=== PATIENT | male | born 1950 | race Caucasian/White ===

== ENCOUNTER 2016-10-15 15:43 | Observation (INO) ==
--- NOTE | 2016-10-15 15:50 | Emergency Department Note ---
Disposition Clinical Impression: Lower extremity edema, Abnormal EKG, Hypertension, CHF (congestive heart failure) Disposition: Admitted As Inpatient Referrals: NO,PCP [Non-Partnered Physician] - Forms: ED Satisfaction Letter General Adult HPI - General Chief complaint: ED Extremity Problem,Nontraumatic Stated complaint: Bilateral Edema Time Seen by Provider: 10/15/16 15:48 Source: patient Limitations: no limitations - History of Present Illness HPI Narrative: 66-year-old male reports emergency department complaining of lower extremity swelling. It has been present for the last 10 days. The patient has no previous history of lower extremity edema. He denies any history of kidney failure or liver failure or previous CHF. He has no history of thyroid problems previous DVT PE or cancer. The patient does not take blood thinners. He has not any chest pain shortness of breath or abdominal pain no coughing up blood or passing out. There is no history of difficulty moving the arms or legs independently. There is no history of coldness blueness numbness or weakness of the extremities. No back pain or urinary problems no fevers or any other complaint or concern. No new medications or rashes. The patient's isolated complaint is lower extremity swelling bilaterally. Onset (ago): day(s) Pain Scale: 2 - Related Data Home Medications Medication Instructions Recorded Confirmed Buprenorphine HCl/Naloxone HCl 1 each SL BID 07/15/15 05/23/16 [Suboxone 8 mg-2 mg Sl Film] Lisinopril [Zestril] 5 mg PO DAILY 07/15/15 05/23/16 Ondansetron HCl [Zofran] 1 tab PO PRN PRN 07/15/15 05/23/16 Previous Rx's Medication Instructions Recorded Diltiazem HCl [Cardizem LA] 120 mg PO DAILY PRN #30 tab.er.24h 05/23/16 Omeprazole [PriLOSEC] 20 mg PO DAILY #30 capsule. 05/23/16 Allergies Allergy/AdvReac Type Severity Reaction Status Date / Time aspirin AdvReac Severe Abdominal Verified 05/23/16 13:05 pain and ulcers NSAIDS (Non-Steroidal AdvReac Severe Abdominal Verified 05/23/16 13:05 Anti-Inflamma pain and ulcers All systems ED: reviewed and negative except as stated. Past Medical History - Past Medical History Medical history: Reports: atrial fibrillation, hypertension, valvular heart disease Surgical history: Reports: appendectomy, other (bilroth 1 anastomosis in 2010) Psychiatric history: Reports: no psych history - Social History Smoking Status: Never smoker Smokeless Tobacco Status: No Alcohol use: Reports: none Drug use: Reports: none Physical Exam - General Limitations: no limitations General appearance: alert, in no apparent distress - Head Head exam: atraumatic, normocephalic, normal inspection - Eye Eye exam: Present: normal appearance, PERRL, EOMI - ENT ENT exam: normal exam, normal oropharynx, mucous membranes moist - Neck Neck exam: Present: normal inspection, full ROM, trachea midline - Chest Chest inspection: Present: normal inspection, symmetric chest wall rise. Absent : tenderness - Respiratory Respiratory exam: Present: normal lung sounds bilaterally. Absent: respiratory distress - Cardiovascular Cardiovascular exam: Present: regular rate, normal rhythm, normal heart sounds - Abdominal Exam Abdominal exam: Present: soft, Non-Tender. Absent: tenderness, distention, guarding, rebound, rigidity - Extremities Exam Extremities exam: Present: normal inspection, full ROM, normal capillary refill , pedal edema. Absent: tenderness, joint swelling, calf tenderness - Expanded Lower Extremity Exam Hip/Pelvis exam: Present: full ROM. Absent: tenderness Upper leg exam: Present: full ROM. Absent: tenderness Knee exam: Present: full ROM. Absent: tenderness Lower leg exam: Present: full ROM, tenderness, swelling. Absent: normal inspection Ankle exam: Present: full ROM, swelling. Absent: normal inspection Foot/toe exam: Present: full ROM, swelling Neurovascular/Tendon exam: Absent: pulse deficit, motor deficit, sensory deficit , tendon deficit - Back Exam Back exam: Present: normal inspection, full ROM. Absent: tenderness, CVA tenderness (R), CVA tenderness (L), vertebral tenderness - Neurological Exam Neurological exam: Present: alert, oriented X3, CN II-XII intact. Absent: motor sensory deficit - Psychiatric Psychiatric exam: Present: normal affect, normal mood - Skin Skin exam: Present: warm, dry, intact, normal color. Absent: rash, cyanosis, diaphoresis, erythema, pallor, mottled Course Vital Signs Temperature 98.4 F 10/15/16 15:44 Pulse Rate 56 10/15/16 15:44 Respiratory Rate 14 10/15/16 15:44 Blood Pressure 180/81 10/15/16 15:44 O2 Sat by Pulse Oximetry 100 10/15/16 15:44 Temperature 98.4 F 10/15/16 15:44 Pulse Rate 63 10/15/16 19:52 Respiratory Rate 16 10/15/16 19:52 Blood Pressure 169/108 10/15/16 19:52 O2 Sat by Pulse Oximetry 100 10/15/16 19:52 Oxygen Delivery Oxygen Delivery Room Air Medical Decision Making - MDM Narrative Medical decision making narrative: The patient does have changes suggestive of CHF based on his peripheral edema, and apparent venous congestion noted by CT and ultrasound. He has a highly abnormal EKG and has never had peripheral edema before. Based on his apparent new onset CHF, age, and markedly peripheral edema, I thought it would be appropriate to admit the patient for further evaluation. The patient is currently stable. He has no personal history of previous CAD or CHF but does have a history of atrial fibrillation remotely. The patient has no history of PE DVT or malignancy renal failure and liver failure or cancer. I consulted the hospitalist for admission. - Lab Data Lab results reviewed: Yes I reviewed the patient's lab results. Result diagrams: 10/15/16 16:02 10/15/16 16:02 Lab Results 10/15/16 10/15/16 10/15/16 Range/Units 16:02 16:02 16:02 WBC 4.5 (4.3-11.1) K/mcL RBC 4.16 L (4.19-5.50) M/mcL Hgb 12.7 L (12.9-16.9) g/dL Hct 39.4 (37.5-50.1) % MCV 94.7 (83.0-100.0) fL MCH 30.5 (28.0-33.3) pg MCHC 32.2 (31.6-35.5) g/dL RDW 12.6 (11.5-14.5) % Plt Count 167 (140-400) K/mcL MPV 10.6 (9.4-12.4) fL Immature Gran % 0.2 (0-4) % Seg Neutrophils % 69.3 % Lymphocytes % 15.9 % Monocytes % 11.5 % Eosinophils % 2.0 % Basophils % 1.1 % Neutrophils # 3.2 (1.6-8.9) K/mcL Lymphocytes # 0.7 (0.6-4.6) K/mcL Monocytes # 0.5 (0.0-1.3) K/mcL Eosinophils # 0.1 (0.0-0.6) K/mcL Basophils # 0.1 (0.0-0.2) K/mcL Immature Plt Fraction 8.1 H (1.1-6.1) % D-Dimer (0-500) ng/mLFEU Sodium 143 (136-145) mEq/L Potassium 3.9 (3.5-4.5) mEq/L Chloride 107 (98-109) mEq/L Carbon Dioxide 30 H (19-29) mEq/L BUN 14 (8-26) mg/dL Creatinine 0.96 (0.72-1.25) mg/dL Est GFR ( Amer) > 60 (> 60) Est GFR (Non-Af Amer) > 60 (> 60) BUN/Creatinine Ratio 15 (6-26) Glucose 83 (70-99) mg/dL Calculated Osmolality 296 (280-300) Calcium 10.2 (8.6-10.8) mg/dL Total Bilirubin 0.5 (0.2-1.2) mg/dL Direct Bilirubin 0.2 (0.0-0.5) mg/dL Indirect Bilirubin 0.3 (0.0-1.2) mg/dL AST 21 (5-34) Units/L ALT 11 (0-55) Units/L Alkaline Phosphatase 93 (38-126) Units/L Troponin I 0.01 (0-0.03) ng/mL C-Reactive Protein 0 (Less than 5) mg/L B-Natriuretic Peptide (0-100) pg/mL Serum Total Protein 7.0 (6.0-8.3) g/dL Albumin 3.9 (3.5-5.0) g/dL Globulin 3.1 (2.4-3.5) g/dL Albumin/Globulin Ratio 1.3 (1.1-2.2) Lipase 14 (8-78) Units/L TSH 1.490 (0.350-4.840) mcIU/mL 10/15/16 10/15/16 Range/Units 16:02 16:05 WBC (4.3-11.1) K/mcL RBC (4.19-5.50) M/mcL Hgb (12.9-16.9) g/dL Hct (37.5-50.1) % MCV (83.0-100.0) fL MCH (28.0-33.3) pg MCHC (31.6-35.5) g/dL RDW (11.5-14.5) % Plt Count (140-400) K/mcL MPV (9.4-12.4) fL Immature Gran % (0-4) % Seg Neutrophils % % Lymphocytes % % Monocytes % % Eosinophils % % Basophils % % Neutrophils # (1.6-8.9) K/mcL Lymphocytes # (0.6-4.6) K/mcL Monocytes # (0.0-1.3) K/mcL Eosinophils # (0.0-0.6) K/mcL Basophils # (0.0-0.2) K/mcL Immature Plt Fraction (1.1-6.1) % D-Dimer 593 H (0-500) ng/mLFEU Sodium (136-145) mEq/L Potassium (3.5-4.5) mEq/L Chloride (98-109) mEq/L Carbon Dioxide (19-29) mEq/L BUN (8-26) mg/dL Creatinine (0.72-1.25) mg/dL Est GFR ( Amer) (> 60) Est GFR (Non-Af Amer) (> 60) BUN/Creatinine Ratio (6-26) Glucose (70-99) mg/dL Calculated Osmolality (280-300) Calcium (8.6-10.8) mg/dL Total Bilirubin (0.2-1.2) mg/dL Direct Bilirubin (0.0-0.5) mg/dL Indirect Bilirubin (0.0-1.2) mg/dL AST (5-34) Units/L ALT (0-55) Units/L Alkaline Phosphatase (38-126) Units/L Troponin I (0-0.03) ng/mL C-Reactive Protein (Less than 5) mg/L B-Natriuretic Peptide 306 H (0-100) pg/mL Serum Total Protein (6.0-8.3) g/dL Albumin (3.5-5.0) g/dL Globulin (2.4-3.5) g/dL Albumin/Globulin Ratio (1.1-2.2) Lipase (8-78) Units/L TSH (0.350-4.840) mcIU/mL - Radiology Data Radiology results reviewed: Yes I reviewed the patient's radiology results.
[2016-10-15 16:10] LABS: Basophils # 0.1 K/mcL (0.0-0.2); Basophils % 1.1 %; Eosinophils # 0.1 K/mcL (0.0-0.6); Hematocrit 39.4 % (37.5-50.1); Hemoglobin 12.7 g/dL (12.9-16.9); Immature Granulocytes % 0.2 % (0-4); Immature Platelets 8.1 % (1.1-6.1); Lymphocytes # 0.7 K/mcL (0.6-4.6); Lymphocytes % 15.9 %; Mean Corpuscular HGB Conc 32.2 g/dL (31.6-35.5); Mean Corpuscular Hemoglobin 30.5 pg (28.0-33.3); Mean Corpuscular Volume 94.7 fL (83.0-100.0); Mean Platelet Volume 10.6 fL (9.4-12.4); Monocytes # 0.5 K/mcL (0.0-1.3); Monocytes % 11.5 %; Neutrophils # 3.2 K/mcL (1.6-8.9); Platelet Count 167 K/mcL (140-400); Red Blood Count 4.16 M/mcL (4.19-5.50); Red Cell Distribution Width 12.6 % (11.5-14.5); Segmented Neutrophils % 69.3 %
[2016-10-15 16:24] LABS: Alanine Aminotransferase 11 Units/L (0-55); Albumin 3.9 g/dL (3.5-5.0); Albumin/Globulin Ratio 1.3 (1.1-2.2); Alkaline Phosphatase 93 Units/L (38-126); Aspartate Amino Transferase 21 Units/L (5-34); BUN/Creatinine Ratio 15 (6-26); Bilirubin,Direct 0.2 mg/dL (0.0-0.5); Bilirubin,Indirect 0.3 mg/dL (0.0-1.2); Bilirubin,Total 0.5 mg/dL (0.2-1.2); Blood Urea Nitrogen 14 mg/dL (8-26); Calcium 10.2 mg/dL (8.6-10.8); Carbon Dioxide 30 mEq/L (19-29); Chloride 107 mEq/L (98-109); Globulin 3.1 g/dL (2.4-3.5); Glucose 83 mg/dL (70-99); Osmolality,Calculated 296 (280-300); Potassium 3.9 mEq/L (3.5-4.5); Sodium 143 mEq/L (136-145); eGFR For African Americans > 60 (> 60); eGFR For Non-African Americans > 60 (> 60)
[2016-10-15 17:27] LABS: C-Reactive Protein 0 mg/L (Less than 5)
[2016-10-15 19:29] LABS: Lipase 14 Units/L (8-78)
[2016-10-15] MEDS ORDERED: Furosemide 40 MG in 0.9 % Sodium Chloride 50 ML IVPB ONE (21:19)
[2016-10-15] MEDS ORDERED: Furosemide 40 MG/4 ML VIAL ONE (21:30)
[2016-10-15] MEDS ORDERED: Naloxone 0.4 MG/ML INJ IVP PRN (22:11)
[2016-10-15] MEDS ORDERED: Ondansetron ODT 4 MG TAB.RAPDIS PO PRN (22:14)
[2016-10-15] MEDS ORDERED: Diltiazem CD (24hr) 120 MG CAPSULE PO PRN (22:14)
--- NOTE | 2016-10-15 22:42 | Internal Med History&Physical ---
Date of Encounter: 10/15/16 Time of Encounter: 22:00 Assessment and Plan (1) Lower extremity edema Current visit: Yes Status: Acute -Concern for CHF -Patient received one dose of Lasix 40mg IV in the ER -Will continue Lasix 40mg IV q12h -follow up 2D echo -monitor daily weights -monitor I/Os -consider cardiology eval if clinically worsens Qualifiers: Laterality: bilateral Qualified Code(s): R60.0 - Localized edema (2) Hypertension Current visit: Yes Status: Chronic -Likely secondary to noncompliane -Will resume home medications -Added Hydralazine 10mg IV q6h PRN -continue to closely monitor BP Qualifiers: Hypertension type: essential hypertension Qualified Code(s): I10 - Essential (primary) hypertension (3) Afib Current visit: No Status: Chronic -Rate controlled with Diltiazem -continue home medications -Not on anticoagulation due to history of GI bleed -not able to tolerate any NSAID and Aspirin due to GI bleed Qualifiers: Atrial fibrillation type: paroxysmal Qualified Code(s): I48.0 - Paroxysmal atrial fibrillation (4) DVT prophylaxis Current visit: Yes Status: Acute Enoxaparin SQ Internal Medicine - H&P: HPI Chief complaint: bilateral lower extremity edema Admitted From: Home Plans for Post Hospital Care: Home History of present illness: Mr. Ward is a 66 year old male with past medical history of hypertension, atrial fibrillation, peptic ulcer disease who presents to the ER for worsening lower extremity edema 10 days. Patient states he has been noticing bilateral lower extremity swelling for the last few days and earlier today he went to urgent care to get it evaluated and was forwarded to the ER for further management. He states he has been in usual state of health, is currently tapering off the Suboxone, and overall is feeling better, apart from the worsening lower extremity swelling. He denies any headache, chest pain, palpitations, shortness of breath, orthopnea, abdominal pain, nausea, vomiting, fever, or chills. At this time patient is resting comfortably in bed and appears to be in no discomfort. He reports of being noncompliant with his antihypertensives and states when his blood pressure is under control he stops taking them until he becomes hypertensive again. Social Hx: Former smoker (quit in 1989), Hx of opioid abuse-currently on Suboxone, hx of alcohol abuse-denies any use at this time FMH: Mother- at age 60 from complications of CHF, as per patient, his mother was diagnosed with CHF at 60 Past Med Surg Social Fam HX - Past Medical History Medical history: atrial fibrillation, hypertension, valvular heart disease Psychiatric history: no psych history - Past Surgical History Surgical History: appendectomy, other (bilroth 1 anastomosis in 2009) - Social History Smoking Status: Former smoker Smokeless Tobacco Status: No Alcohol use: none Drug use: none - Family History Mother Living Status: Hx Family Cardiac Disorders: Yes Internal Medicine - H&P: Meds Buprenorphine HCl/Naloxone HCl [Suboxone 8 mg-2 mg Sl Film] 1 each SL BID [History] Lisinopril [Zestril] 5 mg PO DAILY 07/15/15 [History] Ondansetron HCl [Zofran] 1 tab PO PRN PRN 07/15/15 [History] Diltiazem HCl [Cardizem LA] 120 mg PO DAILY PRN #30 tab.er.24h 05/23/16 [Rx] Omeprazole [PriLOSEC] 20 mg PO DAILY #30 capsule.dr 05/23/16 [Rx] Allergies aspirin Adverse Reaction (Severe, Verified 05/23/16 13:05) Abdominal pain and ulcers NSAIDS (Non-Steroidal Anti-Inflamma Adverse Reaction (Severe, Verified 05/23/16 13:05) Abdominal pain and ulcers All Systems PM: A 10-system review of systems was performed and is negative for pertinent findings except as documented above in the HPI. - Constitutional Constitutional: as per HPI - Constitutional Vitals: Temp Pulse Resp BP Pulse Ox 97.9 F 62 16 192/95 99 10/15/16 22:36 10/15/16 22:36 10/15/16 22:36 10/15/16 22:36 10/15/16 22:36 General appearance: Present: cooperative, A&O X 3, pleasant, no acute distress, answers questions appropriately - Head Head exam: Present: atraumatic, normocephalic - Eye Eye exam: Present: PERRL, conjuntiva pink, sclera anicteric - Respiratory Respiratory exam: Absent: respiratory distress, wheezes (mild bibasilar crackles ) - Cardiovascular Cardiovascular exam: Present: RRR, +S1, +S2. Absent: JVD - GI/Abdominal GI/Abdominal exam: Present: normal bowel sounds, soft. Absent: distended, tenderness - Extremities Exam Extremities exam: Present: pedal edema (2+ pitting edema extending to mid serna bilaterally ), warm, radial pulses palpable and symetrical. Absent: calf tenderness - Neurological Exam Neurological exam: Present: alert, oriented X3, no focal deficits - Psychiatric Psychiatric exam: Present: normal affect, normal mood Internal Med - H&P Results - Labs CBC & Chem 7: 10/15/16 16:02 10/15/16 16:02
[2016-10-16] MEDS: Acetaminophen 325 MG TABLET PO PRN ×2 (02:42→10:14)
[2016-10-16 03:21] LABS: Basophils # 0.1 K/mcL (0.0-0.2); Basophils % 0.9 %; Eosinophils # 0.1 K/mcL (0.0-0.6); Eosinophils % 2.6 %; Hematocrit 39.5 % (37.5-50.1); Hemoglobin 13.1 g/dL (12.9-16.9); Immature Granulocytes % 0.6 % (0-4); Lymphocytes # 0.7 K/mcL (0.6-4.6); Lymphocytes % 13.4 %; Mean Corpuscular HGB Conc 33.2 g/dL (31.6-35.5); Mean Corpuscular Hemoglobin 30.6 pg (28.0-33.3); Mean Corpuscular Volume 92.3 fL (83.0-100.0); Mean Platelet Volume 10.9 fL (9.4-12.4); Monocytes # 0.6 K/mcL (0.0-1.3); Monocytes % 11.6 %; Neutrophils # 3.9 K/mcL (1.6-8.9); Platelet Count 151 K/mcL (140-400); Red Blood Count 4.28 M/mcL (4.19-5.50); Red Cell Distribution Width 12.7 % (11.5-14.5); Segmented Neutrophils % 70.9 %
[2016-10-16 03:34] LABS: BUN/Creatinine Ratio 13 (6-26); Blood Urea Nitrogen 14 mg/dL (8-26); Calcium 9.9 mg/dL (8.6-10.8); Carbon Dioxide 27 mEq/L (19-29); Chloride 105 mEq/L (98-109); Glucose 96 mg/dL (70-99); Osmolality,Calculated 292 (280-300); Phosphorous 3.8 mg/dL (2.3-4.7); Potassium 3.5 mEq/L (3.5-4.5); Sodium 141 mEq/L (136-145); eGFR For African Americans > 60 (> 60); eGFR For Non-African Americans > 60 (> 60)
[2016-10-16] MEDS: *HR* Enoxaparin 40 MG/0.4 ML SYRINGE SQ SCH (06:10)
[2016-10-16] MEDS: Furosemide 40 MG/4 ML VIAL IVP SCH (10:12)
[2016-10-16] MEDS: (Suboxone 8 Mg-2 Mg) SL SCH ×2 (10:27→21:36)
--- NOTE | 2016-10-16 11:11 | Venous Imaging Report ---
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 Recommendations: Preliminary given to Albino in ED. Test completed on 10/15/2016 at 7:42:00 pm. Findings Venous Duplex Results: Right: Venous imaging of the lower extremity reveals full patency and normal vessel compressibility of the right distal iliac, right common femoral, right superficial femoral, right popliteal, right posterior tibial, right peroneal, right great saphenous and right lesser saphenous. Doppler signals in the evaluated veins were normal. Left: Venous imaging of the lower extremity reveals full patency and normal vessel compressibility of the left distal iliac, left common femoral, left superficial femoral, left popliteal, left posterior tibial, left peroneal, left great saphenous and left lesser saphenous. Doppler signals in the evaluated veins were normal. Prior Study: No prior study available for comparison. Lower Extremity Venous Duplex Side Vein Compress Spontaneous Flow Augment Diameter (cm) Depth (cm) Right Distal Iliac Normal Yes Phasic Yes Right Common Femoral Normal Yes Phasic Yes Right Superficial Femoral Normal Yes Phasic Yes Right Popliteal Normal Yes Phasic Yes Right Posterior Tibial Normal Yes Phasic Yes Right Peroneal Normal Yes Phasic Yes Right Great Saphenous Normal Yes Phasic Yes Right Lesser Saphenous Normal Yes Phasic Yes Left Distal Iliac Normal Yes Phasic Yes Left Common Femoral Normal Yes Phasic Yes Left Superficial Femoral Normal Yes Phasic Yes Left Popliteal Normal Yes Phasic Yes Left Posterior Tibial Normal Yes Phasic Yes Left Peroneal Normal Yes Phasic Yes Left Great Saphenous Normal Yes Phasic Yes Left Lesser Saphenous Normal Yes Phasic Yes Updated by Da Nagy MD on 10/16/2016 11:05:35 AM electronically signed on 10/16/2016 11:05:54 AM with status of Final
--- NOTE | 2016-10-16 15:50 | ECHO - Doppler Report ---
Echocardiogram Name: Kasi Ward Date of Study: 10/16/2016 Date: 1950 Ht: 71.0 in Medical Record#: [id number] Age: 66 Wt: 144.0 lb Gender: Male BSA: 1.83 Order #: [id number] Location: [facility] Room #: [facility] Reading Physician: Christi Hernandez DO Meter Reader Inspector: SAIMA StoddardT, [facility] Ordering Physician: Sherry Jimenez MD Primary Physician: Jasmyn Anthony MD Indications: Congestive heart failure Impressions: LVEF 65%. Normal left ventricular size and systolic function. There is evidence of moderate diastolic dysfunction of the left ventricle. Normal right ventricular size and function. Moderate-severe eccentric aortic regurgitation. There is a mobile mitral valve chordae that oscillates between the LA and LV probably consistent with a ruptured chordae (image #45). Degree of MR appears mild and likely underestimated. There also appears to be probable prolapsing of a middle scallop (image #66). Moderate pulmonic regurgitation. Estimated RVSP was 23 mmHg. No pulmonary hypertension. Recommend MARY JANE for further evaluation of the mitral valve and aortic valves. Spoke with Dr. Lofton and communicated results. Patient is stable. Left Ventricular Wall Motion: Rest Echo Findings All wall segments showed normal motion. Findings: Study Quality * Technically adequate exam. ECG Findings * Normal sinus rhythm. Left Ventricle * Normal LV chamber size, wall thickness and function. * Moderate left ventricular diastolic dysfunction. * LVEF 65%. Right Atrium * Normal right atrial size. Aortic Valve * Trileaflet aortic valve. * No aortic stenosis. * Moderate-severe eccentric aortic regurgitation. * Mildly calcified aortic valve leaflets. Mitral Valve * No mitral stenosis. * Mildly thickened mitral valve leaflets. * Mild mitral regurgitation. * Probable prolapsing of a middle scallop with a chordae that appears ruptured. Tricuspid Valve * Trace tricuspid regurgitation. * Normal tricuspid valve structure. * Estimated RA pressure is 3 mmHg. * Estimated RVSP is 23 mmHg. * No pulmonary hypertension. Pulmonic Valve * Pulmonic valve is not well visualized. * No pulmonic stenosis. * Moderate pulmonic regurgitation. Pulmonary Artery * Normal visualized portions of the main pulmonary artery. Right Ventricle * Normal right ventricular structure and function. Left Atrium * Severely dilated left atrium. Interatrial Septum * No evidence of PFO by color Doppler. IVC * Normal IVC dimensions and inspiratory collapse. Pericardium * There is no pericardial effusion present. Aorta * Normally sized aortic root. History Hypertension Family History of CAD 2015 a Previous Echo was performed. Measurements: BP: 125/ 78 2D Normal Values IVSd: 1.10 cm 0.6 - 1.0 cm LVIDd: 5.20 cm 3.7 - 5.6 cm LVPWd: 1.10 cm 0.6 - 1.1 cm LVIDs: 4.10 cm 1.5 - 3.6 cm AO: 2.80 cm < 4.0 cm LA: 2.80 cm 2.0 - 4.0cm %FS: 25.50 cm >25 % LA volume: 45 Mitral Valve Peak E:.72 m/sec Peak A:.57 m/sec E/A Ratio:1.2 Aortic Valve AI pressure Half-time: 677.00 msec Tricuspid Valve TV Regurg Peak Grad: 20.00mmHg TV Regurg Peak Paco: 2.25m/sec Updated by Christi Hernandez on 10/16/2016 1:32:08 PM electronically signed on 10/16/2016 3:44:19 PM with status of Final Wall Motion Bray: 1=Normal, 2=Hypokinesis, 3=Akinesis, 4=Dyskinesis, 5=Aneurysmal, 6=Hyperkinetic, X=Not Visualized (Blank)=Missing
--- NOTE | 2016-10-16 16:36 | Internal Med Progress Note ---
Date of Encounter: 10/16/16 Time of Encounter: 16:30 - Assessment and plan (1) Lower extremity edema Current Visit: Yes Status: Acute Assessment and plan: Improving. Continue Lasix. Qualifiers: Laterality: bilateral Qualified Code(s): R60.0 - Localized edema (2) Mitral valve prolapse Current Visit: Yes Status: Suspected Assessment and plan: 2-D echocardiogram shows possible mitral valve prolapse With concern for ruptured chorda tendinae. Discussed with cardiology. Plan for MARY JANE tomorrow. Patient is clinically stable at this time. (3) Hypertension Current Visit: Yes Status: Chronic Assessment and plan: Well-controlled. Qualifiers: Hypertension type: essential hypertension Qualified Code(s): I10 - Essential (primary) hypertension (4) Afib Current Visit: No Status: Chronic Assessment and plan: Rate controlled. Continue Cardizem. Qualifiers: Atrial fibrillation type: paroxysmal Qualified Code(s): I48.0 - Paroxysmal atrial fibrillation (5) DVT prophylaxis Current Visit: Yes Status: Acute Assessment and plan: On Lovenox - Subjective Interval history: Patient is feeling better today. Denies any shortness of breath. No chest pain. No nausea or vomiting. Having good urine output. - Constitutional Vitals: Temp Pulse Resp BP Pulse Ox 98.0 F 69 17 144/75 99 10/16/16 15:06 10/16/16 15:06 10/16/16 15:06 10/16/16 15:06 10/16/16 15:06 General appearance: Present: cooperative, A&O X 3, pleasant, no acute distress, answers questions appropriately - Respiratory Respiratory exam: Present: CTAB. Absent: accessory muscle use, rales, rhonchi, wheezes - GI/Abdominal GI/Abdominal exam: Present: normal bowel sounds, soft, no peritoneal signs. Absent: distended, tenderness - Extremities Exam Extremities exam: Present: warm, radial pulses palpable and symetrical. Absent : calf tenderness, cyanotic, pedal edema - Neurological Exam Neurological exam: Present: CN II-XII intact, oriented X3, no focal deficits. Absent: facial droop, speech deficit - Skin Skin exam: Present: dry, intact Internal Medicine: Result - Labs CBC & Chem 7: 10/16/16 03:04 10/16/16 03:04 Labs: Short CBC 10/16/16 Range/Units 03:04 WBC 5.4 (4.3-11.1) K/mcL Hgb 13.1 (12.9-16.9) g/dL Hct 39.5 (37.5-50.1) % Plt Count 151 (140-400) K/mcL Neutrophils # 3.9 (1.6-8.9) K/mcL BMP 10/16/16 03:04 Sodium 141 Potassium 3.5 Chloride 105 Carbon Dioxide 27 BUN 14 Creatinine 1.04 Glucose 96 Calcium 9.9 - ABG Interpretation ABG results: PT/INR, D-dimer D-Dimer 593 ng/mLFEU (0-500) H 10/15/16 16:05 Consult Discharge Plan - Plan Referrals: Jasmyn Anthony MD [Primary Care Provider] - - Attending Attestation This document has been at least partially created by [email or web address] recognition technology by Dr. Lofton. Errors in grammar, wording or other phrases may exist. If errors are found after the documentation is signed, they will be addressed individually in the addendum section of this document when appropriate. Medical Decision Making - MDM Narrative Medical decision making narrative: Moderate risk for complications - Lab Data Lab results reviewed: Yes I reviewed the patient's lab results. Result diagrams: 10/16/16 03:04 10/16/16 03:04 Lab Results 10/16/16 10/16/16 Range/Units 03:04 03:04 WBC 5.4 (4.3-11.1) K/mcL RBC 4.28 (4.19-5.50) M/mcL Hgb 13.1 (12.9-16.9) g/dL Hct 39.5 (37.5-50.1) % MCV 92.3 (83.0-100.0) fL MCH 30.6 (28.0-33.3) pg MCHC 33.2 (31.6-35.5) g/dL RDW 12.7 (11.5-14.5) % Plt Count 151 (140-400) K/mcL MPV 10.9 (9.4-12.4) fL Immature Gran % 0.6 (0-4) % Seg Neutrophils % 70.9 % Lymphocytes % 13.4 % Monocytes % 11.6 % Eosinophils % 2.6 % Basophils % 0.9 % Neutrophils # 3.9 (1.6-8.9) K/mcL Lymphocytes # 0.7 (0.6-4.6) K/mcL Monocytes # 0.6 (0.0-1.3) K/mcL Eosinophils # 0.1 (0.0-0.6) K/mcL Basophils # 0.1 (0.0-0.2) K/mcL Sodium 141 (136-145) mEq/L Potassium 3.5 (3.5-4.5) mEq/L Chloride 105 (98-109) mEq/L Carbon Dioxide 27 (19-29) mEq/L BUN 14 (8-26) mg/dL Creatinine 1.04 (0.72-1.25) mg/dL Est GFR ( Amer) > 60 (> 60) Est GFR (Non-Af Amer) > 60 (> 60) BUN/Creatinine Ratio 13 (6-26) Glucose 96 (70-99) mg/dL Calculated Osmolality 292 (280-300) Calcium 9.9 (8.6-10.8) mg/dL Phosphorus 3.8 (2.3-4.7) mg/dL Magnesium 2.0 (1.6-2.6) mg/dL - Radiology Data Radiology results reviewed: Yes I reviewed the patient's radiology results.
[2016-10-16] MEDS: Acetaminophen/Butalbital/CaffeineTABLET PO PRN (19:40)
[2016-10-17] MEDS: Acetaminophen/Butalbital/CaffeineTABLET PO PRN ×2 (01:40→12:02)
[2016-10-17] MEDS: *HR* Enoxaparin 40 MG/0.4 ML SYRINGE SQ SCH (06:14)
--- NOTE | 2016-10-17 08:44 | Cardiology Consult Note ---
Date of Encounter: 10/17/16 Time of Encounter: 08:20 Assessment and Plan (1) Valvular disease Current Visit: Yes Status: Acute Per Cardiology: TTE: preserved EF 65% with moderate to severe AR and also mobile MV chordae consistent with rupture. Recommend MARY JANE for further evaluation of mitral and aortic valves. Patient has been NPO after midnight and agrees to proceed. Further recommendations after testing. (2) Afib Current Visit: Yes Status: Chronic Hx of PAF. Rate controlled on oral cardizem. ECG upon presentation shows SR. No AC due to history of GI bleed. Qualifiers: Atrial fibrillation type: paroxysmal Qualified Code(s): I48.0 - Paroxysmal atrial fibrillation (3) CHF (congestive heart failure) Current Visit: Yes Status: Acute Mild acute on chronic diastolic CHF. EF preserved, 65%. Symptoms resolved with IV lasix, recommend transition to oral maintenance dose as discharge. Strict I&O's, daily weights, and low sodium diet. Qualifiers: Congestive heart failure type: diastolic Congestive heart failure chronicity: acute on chronic Qualified Code(s): I50.33 - Acute on chronic diastolic (congestive) heart failure Discussion w patient/family: The assessment and plan as outlined above was discussed with the patient and/or family members who expressed understanding and agreement. All questions were answered. Thank you for involving us in the care of your patient. Please call with any questions. The patient will be discussed and reviewed with Dr. Rudolph; changes to be made accordingly. History of Present Illness Consult date: 10/16/16 Requesting physician: Maira Lofton Consult reason: Abnormal echo Chief complaint: Edema History of present illness: Mr. Ward is a 66 year old male with PMH significant for HTN, PAF, GI bleed on AC, and tobacco use who presented to the ED with complaints of bilateral lower extremity edema. He states symptoms had been persistent for 9 days. Denies associated symptoms, change in diet, or medications. Denies PND, orthopnea, chest pain or discomfort, dyspnea, palpitations, or syncope. Upon exam, lower extremity edema has since resolved. Cardiology consulted today for abnormal TTE findings, possible ruptured MV chordae. MARY JANE recommended. Prior CV testing includes: Regadenoson nuclear stresss 05/23/16: negative for ischemia or infarct, gated EF =63%, LV is dilated, EZDJU=556 mL TTE 03/26/15: LVEF 60-65%, severely enlarged left atrial size, mildly enlarged right atrial size, moderate AR, mild MR/TR/MT, borderline PH (est RVSP= 35 mmHg), normal wall motion. [facility] 06/2010: minimal atherosclerotic CAD, EF 65%, moderate MR, moderate to severe AR Past Med Surg Social Fam HX - Past Medical History Medical history: atrial fibrillation, hypertension, valvular heart disease Psychiatric history: no psych history - Past Surgical History Surgical History: appendectomy, other (bilroth 1 anastomosis in 2009) - Social History Smoking Status: Former smoker Smokeless Tobacco Status: No Alcohol use: none Drug use: none - Family History Father Hx Family Medical Disorders: Yes (HTN) Mother Living Status: Hx Family Cardiac Disorders: Yes Medications and Allergies Buprenorphine HCl/Naloxone HCl [Suboxone 8 mg-2 mg Sl Film] 1 film SL BID [History] Lisinopril [Zestril] 5 mg PO DAILY 07/15/15 [History] Ondansetron HCl [Zofran] 4 mg PO Q6H PRN 07/15/15 [History] Diltiazem HCl [Cardizem LA] 120 mg PO DAILY PRN #30 tab.er.24h 05/23/16 [Rx] Aspirin [Lo-Dose Aspirin EC] 81 mg PO DAILY 10/16/16 [History] Folic Acid 1 mg PO DAILY 10/16/16 [History] Omeprazole [PriLOSEC] 40 mg PO DAILY 10/16/16 [History] Allergies aspirin Adverse Reaction (Severe, Verified 05/23/16 13:05) Abdominal pain and ulcers NSAIDS (Non-Steroidal Anti-Inflamma Adverse Reaction (Severe, Verified 05/23/16 13:05) Abdominal pain and ulcers All Systems Review: A 10-system review of systems was performed and is negative for pertinent findings except as documented above in the HPI. - Cardiovascular Cardiovascular: as per HPI Physical Examination Vital Signs, Last 4 Hours Temp Pulse Resp BP Pulse Ox 10/17/16 06:44 98.2 F 94 15 141/84 96 General: Conversant, No Apparent Distress HEENT: Atraumatic, Normocephaly Cardiac: Reg Rate and Rhythm, Normal S1 and S2, Other (2/6 murmur) Lungs: Normal Breath Sounds Neuro: Alert and responsive Abdomen: Soft Skin: No rashes noted on visualized skin Musculoskeletal: No Chest Wall Tenderness Extremities: No Edema, Normal Pulses Results 10/16/16 03:04 10/16/16 03:04 Active Medications Acetaminophen (Tylenol) 650 mg PO Q6HR PRN PRN Reason: FEVER/PAIN Stop: 04/17/17 02:26 Last Admin: 10/16/16 10:14 Dose: 650 mg Acetaminophen/Butalbital/Caffeine (Fioricet) 1 each PO Q6HR PRN; Protocol PRN Reason: Headache Stop: 04/17/17 19:09 Last Admin: 10/17/16 01:40 Dose: 1 each Diltiazem HCl (Cardizem Cd) 120 mg PO DAILY PRN PRN Reason: tachycardia Enoxaparin Sodium (Lovenox) 40 mg SQ 0600 [facility] PRN Reason: Protocol Stop: 04/17/17 06:01 Last Admin: 10/17/16 06:14 Dose: Not Given Furosemide (Lasix) 40 mg IVP DAILY [facility] Stop: 04/17/17 09:01 Last Admin: 10/17/16 08:49 Dose: Not Given Hydralazine HCl (Hydralazine) 10 mg IVP Q6HR PRN PRN Reason: Hypertension Stop: 04/16/17 22:38 Last Admin: 10/15/16 23:05 Dose: 10 mg Lisinopril (Zestril) 5 mg PO DAILY LEIDY PRN Reason: Protocol Stop: 04/17/17 09:01 Last Admin: 10/17/16 08:49 Dose: Not Given Naloxone HCl (Narcan) 0.4 mg IVP Q2MIN PRN PRN Reason: Opioid Reversal Stop: 04/16/17 22:12 Omeprazole (Prilosec) 20 mg PO DAILY@0630 LEIDY PRN Reason: Protocol Stop: 04/17/17 06:31 Last Admin: 10/17/16 06:12 Dose: Not Given Ondansetron HCl (Zofran Odt) 4 mg PO Q8H PRN PRN Reason: Nausea Stop: 04/16/17 22:15 Last Admin: 10/16/16 11:42 Dose: 4 mg Pharmacy Profile Note (Patient Taking Own Medication) 1 each SL BID LEIDY Stop: 04/17/17 09:01 Last Admin: 10/17/16 08:49 Dose: Not Given Intake & Output 10/14/16 10/15/16 10/16/16 10/17/16 23:59 23:59 23:59 23:59 Intake Total 1330 / 1330 0 / 0 Output Total 1200 / 1200 3750 / 3750 200 / 200 Balance -1200 / -1200 -2420 / -2420 -200 / -200 Weight 65.317 kg 55.6 kg - Imaging and Cardiology Chest Xray: report reviewed Echo: report reviewed Cardiac cath: report reviewed - EKG Interpretation EKG results cardiology: personally reviewed Consult Discharge Plan - Plan Referrals: Jasmyn Anthony MD [Primary Care Provider] -
[2016-10-17] MEDS: (Suboxone 8 Mg-2 Mg) SL SCH ×2 (08:49→12:02)
[2016-10-17] MEDS: Furosemide 40 MG/4 ML VIAL IVP SCH (08:49)
[2016-10-17] MEDS ORDERED: 0.9 % Sodium Chloride 500 ML IVC ONE (09:38)
[2016-10-17] MEDS ORDERED: Tetracaine/Benzocaine/Butamben 200MG/SPRAY (100SPY/BOT) MM ONE (09:39)
[2016-10-17] MEDS: *HR* Midazolam HCl 5 MG/5 ML VIAL IVP PRN ×2 (10:30→10:35)
[2016-10-17] MEDS: *HR* FentaNYL (PF) 100 MCG/2 ML VIAL IVP PRN ×2 (10:30→10:35)
[2016-10-17 11:49] VITALS: BP 117/65
--- NOTE | 2016-10-17 11:49 | ECHO - Doppler Report ---
Transesophageal Echocardiogram Name: Kasi Ward Date of Study: 10/17/2016 Date: 1950 Ht: 71.0in Medical Record#: [id number] Age: 66 Wt: 122.0lb Gender: Male BSA: 1.71 Order #: [id number] [facility] Room #: [facility] Reading Physician: Elliott Hlae DO, TAVIA, JUAN DAN Copy Center Operator: Diego Lucia Ordering Physician: Ayala Lilly CNP Primary Physician: Jasmyn Anthony MD Indications: Valvular disease Impressions: Technically sub-optimal study. Off axis images complicated evaluation. LVEF 60%. Normal LV size and function. The right ventricle was normal in size and systolic function. Severe aortic regurgitation, which was eccentric and directed towards the anterior MV leaflet. Aortic regurgitation appears secondary to malcoaptation between the non and left coronary cusps. There appears to be mild prolapse of the posterior MV leaflets. No ruptured chordae or masses noted. Mild mitral regurgitation. Findings discussed with inpatient cardiology team. Left Ventricular Wall Motion: Transesophageal Echo Findings All wall segments showed normal motion. Procedure Summary: After explaining the risks, benefits, and alternatives of the procedure to the patient in detail and answering all questions to satisfaction, an informed consent was obtained in writing. The patient was NPO for the six hours prior to the procedure. The patient denied dysphagia, odynophagia, and loose teeth. The patient was monitored with periodic automated blood pressures and continuous pulse oximetry and telemetry. Continuous oxygen was administered by [place]. The patient was placed in the full upright position and the posterior oropharynx was anesthetized as above and complete suppression of the gag reflex was obtained. The patient was then placed in the left lateral decubitus position, the neck was flexed, and a bite block was placed in the patient's mouth. IV sedation was administered. Once adequate sedation was achieved, a well-lubricated anteflexed multipoint intraesophageal echocardiographic probe was inserted into the midline posterior oropharynx. Gentle pressure was applied as the patient swallowed and the esophagus was intubated without difficulty. The scope was advanced to the mid esophagus without encountering resistance. Images were obtained from the mid and upper esophagus. Images from the gastric globe were obtained. The scope was then rotated approximately 180 degrees and withdrawn, visualizing the length of the aorta. The scope was then slowly withdrawn as the patient was continually suctioned. The patient tolerated the procedure well. Medication Given: Time Medication Dose Units Route 10:30 Versed 2 mg IV 10:30 Fentanyl 25 mcg IV 10:35 Versed 2 mg IV 10:35 Fentanyl 25 mcg IV Findings: Study Quality * Technically sub-optimal study. Off axis images complicated evaluation. ECG Findings * Normal sinus rhythm Left Ventricle * LVEF 60%. * Normal LV size and function. Right Ventricle * The right ventricle was normal in size and systolic function. Left Atrium * Moderately dilated left atrium. Right Atrium * Within normal limits. Aortic Valve * The aortic valve is trileaflet. * Severe aortic regurgitation, which was eccentric and directed towards the anterior MV leaflet. * Aortic regurgitation appears secondary to malcoaptation between the non and left coronary cusps. * No aortic stenosis. Mitral Valve * There appears to be mild prolapse of the posterior MV leaflets. No ruptured chordae or masses noted. * Mild mitral regurgitation. * No mitral stenosis. Tricuspid Valve * Normal structure. Pulmonic Valve * Normal structure and function. * No pulmonic regurgitation. Aorta * The aortic root is not dilated. Pericardium * No pericardial effusion. Pulmonary Artery * Normal pulmonary artery. Complications: None History: Hypertension Years 10 Packs 1 Family History of CAD Valvular Disease Previous Echo10/16/2016 Updated by Elliott Hale DO, FACIldefonso, SY, JUAN on 10/17/2016 11:42:54 AM electronically signed on 10/17/2016 11:44:28 AM with status of Final Wall Motion Bray: 1=Normal, 2=Hypokinesis, 3=Akinesis, 4=Dyskinesis, 5=Aneurysmal, 6=Hyperkinetic, X=Not Visualized (Blank)=Missing Wall MotionIndex MARY JANE Total of all scored calhoun 17 Index Divided by ---- = 1 Total number of calhoun scored 17
--- NOTE | 2016-10-17 13:14 | Event Note ---
Date of Encounter: 10/17/16 Time of Encounter: 13:00 - Cardiology Event Note Results of MARY JANE (see full report) reviewed with patient. No rupture of MV chordae visualized. Severe AR. EF preserved. He is relatively asymptomatic, mild edema which has now resolved with IV diuresis. Recommend outpatient low dose vs. prn dosing of lasix. Recommend follow-up in the outpatient for monitoring of AR. Plan discussed with primary team, Cardiology will sign-off. Discussed and reviewed with Dr. Rudolph.
--- NOTE | 2016-10-17 13:19 | Discharge Summary ---
Date of Encounter: 10/17/16 Time of Encounter: 08:00 - Discharge Diagnosis (1) CHF (congestive heart failure) Priority: Primary Status: Acute Qualifiers: Congestive heart failure type: diastolic Congestive heart failure chronicity: acute on chronic Qualified Code(s): I50.33 - Acute on chronic diastolic (congestive) heart failure (2) Lower extremity edema Priority: Primary Status: Acute Qualifiers: Laterality: bilateral Qualified Code(s): R60.0 - Localized edema (3) Mitral valve prolapse Priority: Secondary Status: Suspected (4) Hypertension Priority: Secondary Status: Chronic Qualifiers: Hypertension type: essential hypertension Qualified Code(s): I10 - Essential (primary) hypertension (5) Afib Priority: Secondary Status: Chronic Qualifiers: Atrial fibrillation type: paroxysmal Qualified Code(s): I48.0 - Paroxysmal atrial fibrillation (6) DVT prophylaxis Priority: Secondary Status: Acute - Discharge Medications Prescriptions: Furosemide [Lasix] 40 mg PO DAILY #30 tablet Potassium Chloride 10 meq PO DAILY #30 tab.er.prt Home Medications: Buprenorphine HCl/Naloxone HCl [Suboxone 8 mg-2 mg Sl Film] 1 film SL BID [History] Lisinopril [Zestril] 5 mg PO DAILY 07/15/15 [History] Ondansetron HCl [Zofran] 4 mg PO Q6H PRN 07/15/15 [History] Diltiazem HCl [Cardizem LA] 120 mg PO DAILY PRN #30 tab.er.24h 05/23/16 [Rx] Aspirin [Lo-Dose Aspirin EC] 81 mg PO DAILY 10/16/16 [History] Folic Acid 1 mg PO DAILY 10/16/16 [History] Omeprazole [PriLOSEC] 40 mg PO DAILY 10/16/16 [History] Furosemide [Lasix] 40 mg PO DAILY #30 tablet 10/17/16 [Rx] Potassium Chloride 10 meq PO DAILY #30 tab.er.prt 10/17/16 [Rx] Allergies/Adverse Reactions: Allergies aspirin Adverse Reaction (Severe, Verified 05/23/16 13:05) Abdominal pain and ulcers NSAIDS (Non-Steroidal Anti-Inflamma Adverse Reaction (Severe, Verified 05/23/16 13:05) Abdominal pain and ulcers Procedures/tests Complete & Pending: Procedures Performed prior 72 hours Category Date Time Status EV MARY JANE transesophageal echo Routine Y 10/17/16 08:40 Completed EV echocardiogram Stat Y 10/16/16 22:13 Completed Date of admission: 10/15/16 21:29 Primary care physician: Jasmyn Anthony Consults: 10/16/16 16:41 Consult to Cardiology [CONS] Routine Comment: Consulting Provider: Cardiology Desiree Reason for Consult: Abnormal echo findings Time Notified: 16:42 Call Completed: Yes Discharging clinician: Maira Lofton Anticipated date of discharge: 10/17/16 - Patient Status Disposition: Home, Self-Care Condition: Good Functional capacity at discharge: independent ambulation Overall status at discharge: patient is back to baseline - Discharge Instructions Instructions: Heart Failure (DC) Follow Up With: Jasmyn Anthony MD [Primary Care Provider] - 10/26/16 10:45 am Elliott Hale DO [Partnered Physician] - (in 1-2 weeks) - Diet and Activity Activity: resume usual activities as tolerated Diet: low salt diet Hospital course: Mr. Ward is a 66 year old male patient with history of atrial fibrillation who had presented to the ER with complaints of pedal edema. He was observed in the hospital and treated with Lasix initially with improvement in his edema. He then underwent a 2-D echocardiogram which showed moderate diastolic dysfunction and mitral valve prolapse with concern for ruptured chordae tendineae. Patient then underwent transesophageal echocardiogram which did not show any ruptured chordae. The patient does have severe aortic regurgitation. Patient is not on anticoagulation due to history of GI bleed while on anticoagulation. Cardiology has seen the patient and recommended outpatient management. Patient will be discharged today with outpatient follow-up with cardiology arranged. - Time Spent with Patient Total time spent providing and/or coordinating discharge services: Less than 30 minutes (25 min) - Constitutional Vitals: Temp Pulse Resp BP Pulse Ox 97.7 F 52 18 117/65 99 10/17/16 11:48 10/17/16 11:48 10/17/16 11:48 10/17/16 11:48 10/17/16 11:48 General appearance: Present: cooperative, A&O X 3, pleasant, no acute distress, answers questions appropriately - Respiratory Respiratory exam: Present: CTAB. Absent: accessory muscle use, rales, rhonchi, wheezes - Cardiovascular Cardiovascular exam: Present: RRR, +S1, +S2. Absent: diastolic murmur, gallop, rubs, systolic murmur - GI/Abdominal GI/Abdominal exam: Present: normal bowel sounds, soft, no peritoneal signs. Absent: distended, tenderness - Extremities Exam Extremities exam: Present: warm, radial pulses palpable and symetrical. Absent : calf tenderness, cyanotic, pedal edema - Neurological Exam Neurological exam: Present: CN II-XII intact, oriented X3, no focal deficits. Absent: facial droop, speech deficit
--- NOTE | 2016-10-17 13:36 | Electrocardiograph Report ---
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
== END 2016-10-17 16:16 | disposition home or self-care (01) ==
LOC: 3BNU 15:43 → EMEROO 15:43 → SUATTDRO 21:29 → 3BNU 22:04
PROVIDERS: ADMIT Internal Medicine; ATTEND Internal Medicine

== ENCOUNTER 2020-06-24 19:37 | Inpatient (IN) ==
[2020-06-24 20:47] LABS: Basophils # 0.1 K/mcL (0.0-0.2); Basophils % 2.8 %; Eosinophils # 0.1 K/mcL (0.0-0.6); Eosinophils % 2.2 %; Hemoglobin 9.7 g/dL (12.9-16.9); Lymphocytes # 0.9 K/mcL (0.6-4.6); Lymphocytes % 28.9 %; Mean Corpuscular HGB Conc 29.4 g/dL (31.6-35.5); Mean Corpuscular Hemoglobin 25.5 pg (28.0-33.3); Mean Corpuscular Volume 86.6 fL (83.0-100.0); Mean Platelet Volume 10.3 fL (9.4-12.4); Monocytes # 0.4 K/mcL (0.0-1.3); Monocytes % 12.9 %; Neutrophils # 1.7 K/mcL (1.6-8.9); Platelet Count 216 K/mcL (140-400); Red Blood Count 3.81 M/mcL (4.19-5.50); Red Cell Distribution Width 15.2 % (11.5-14.5); Segmented Neutrophils % 53.2 %; White Blood Count 3.2 K/mcL (4.3-11.1)
[2020-06-24 20:49] LABS: INR 1.3; Prothrombin Time 14.3 Seconds (9.4-12.1)
[2020-06-24 21:06] LABS: BUN/Creatinine Ratio 13 (6-26); Blood Urea Nitrogen 17 mg/dL (8-23); Calcium 9.3 mg/dL (8.6-10.3); Carbon Dioxide 28 mEq/L (23-29); Chloride 102 mEq/L (98-107); Glucose 88 mg/dL (70-105); Osmolality,Calculated 287 (280-300); Potassium 3.3 mEq/L (3.5-5.1); Sodium 138 mEq/L (136-145); eGFR For African Americans > 60 (> 60); eGFR For Non-African Americans 53 (> 60)
[2020-06-24 21:13] LABS: Troponin I 0.08 ng/mL (< 0.04)
[2020-06-24] MEDS ORDERED: Aspirin 81 MG TAB.CHEW PO STA (21:20)
[2020-06-24] MEDS ORDERED: Furosemide 40 MG/4 ML VIAL IVP ONE (21:36)
[2020-06-24 22:29] LABS: Bilirubin,Urine Negative (Negative); Blood,Urine Moderate (Negative); Clarity,Urine Clear (Clear); Color,Urine Light-Yellow (Yellow); Glucose,Urine (UA) Normal (Normal); Ketones,Urine Trace mg/dL (Negative); Leukocyte Esterase,Urine Negative (Negative); Mucus,Urine Few per lpf (None-Few); Nitrite,Urine Negative (Negative); PH,Urine 7.5 pH Units (5.0-8.0); Protein,Urine Trace mg/dL (Neg-Trace); RBC,Urine 30-50 per hpf (0-3); Specific Gravity,Urine 1.018 (1.010-1.025); WBC,Urine 0-3 per hpf (0-3)
[2020-06-24] MEDS ORDERED: Naloxone 0.4 MG/ML INJ IVP PRN (23:05)
[2020-06-25] MEDS ORDERED: Perflutren Lipid Microsphere 1.3 ML in 0.9 % Sodium Chloride 8.7 ML IVP PRN (02:40)
[2020-06-25 03:12] LABS: Hematocrit 35.1 % (37.5-50.1); Hemoglobin 10.5 g/dL (12.9-16.9); Mean Corpuscular HGB Conc 29.9 g/dL (31.6-35.5); Mean Corpuscular Volume 86.9 fL (83.0-100.0); Mean Platelet Volume 10.3 fL (9.4-12.4); Platelet Count 218 K/mcL (140-400); Red Blood Count 4.04 M/mcL (4.19-5.50); White Blood Count 3.8 K/mcL (4.3-11.1)
[2020-06-25 03:30] LABS: Alanine Aminotransferase 14 Units/L (7-52); Albumin 3.6 g/dL (3.5-5.7); Albumin/Globulin Ratio 1.4 (1.1-2.2); Alkaline Phosphatase 56 Units/L (34-104); Aspartate Amino Transferase 32 Units/L (13-39); BUN/Creatinine Ratio 13 (6-26); Bilirubin,Total 0.9 mg/dL (0.3-1.0); Blood Urea Nitrogen 16 mg/dL (8-23); Calcium 9.7 mg/dL (8.6-10.3); Carbon Dioxide 30 mEq/L (23-29); Chloride 102 mEq/L (98-107); Globulin 2.6 g/dL (2.4-3.5); Glucose 89 mg/dL (70-105); Magnesium 1.6 mg/dL (1.6-2.6); Osmolality,Calculated 291 (280-300); Phosphorous 2.7 mg/dL (2.7-4.5); Potassium 3.3 mEq/L (3.5-5.1); Sodium 140 mEq/L (136-145); Total Protein 6.2 g/dL (6.4-8.9); eGFR For African Americans > 60 (> 60); eGFR For Non-African Americans 57 (> 60)
[2020-06-25] MEDS: niCARdipine 20 MG/200 ML MLS IVC SCH ×2 (04:12→13:50)
[2020-06-25] MEDS ORDERED: Potassium Chloride 40 MEQ, Lidocaine 1% 2 ML in 0.9 % Sodium Chloride 500 ML IVPB ONE (06:00)
[2020-06-25] MEDS ORDERED: *HR* Heparin 5,000 UNIT/ML VIAL SQ SCH (06:15)
[2020-06-25] MEDS: Metoprolol XL (24 HR) Succ 50 MG TAB.ER.24H PO SCH (07:59)
[2020-06-25] MEDS: Buprenorphine Hcl/Naloxone Hcl [Suboxone 8 Mg-2 Mg] SL SCH ×2 (07:59→21:22)
[2020-06-25] MEDS: lisinopriL 10 MG TABLET PO SCH (07:59)
[2020-06-25] MEDS ORDERED: Furosemide 40 MG/4 ML VIAL IVP SCH (09:00)
[2020-06-25] MEDS: Furosemide 40 MG TABLET PO SCH (09:47)
[2020-06-25] MEDS ORDERED: *HR* Heparin 5,000 UNIT/ML VIAL IVP PRN ×2 (12:57)
[2020-06-25] MEDS ORDERED: *HR* Heparin 5,000 UNIT/ML VIAL IVP ONE (12:57)
[2020-06-25] MEDS ORDERED: Heparin 25,000UNIT/250ML 1/2NS 25,000 UNIT/250 ML IV.SOLN IVC SCH (13:00)
[2020-06-25 13:41] LABS: Hematocrit 38.1 % (37.5-50.1); Hemoglobin 11.1 g/dL (12.9-16.9); Mean Corpuscular HGB Conc 29.1 g/dL (31.6-35.5); Mean Corpuscular Volume 85.8 fL (83.0-100.0); Mean Platelet Volume 10.5 fL (9.4-12.4); Platelet Count 254 K/mcL (140-400); Red Blood Count 4.44 M/mcL (4.19-5.50); Red Cell Distribution Width 15.3 % (11.5-14.5); White Blood Count 4.5 K/mcL (4.3-11.1)
[2020-06-25 13:44] LABS: Heparin anti-factor XA UFH 0.07 IU/mL (0.30-0.70); INR 1.3; Prothrombin Time 14.3 Seconds (9.4-12.1)
[2020-06-25] MEDS ORDERED: Acetaminophen 325 MG TABLET PO PRN (14:35)
[2020-06-26] MEDS ORDERED: Regadenoson 0.4 MG/5 ML SYRINGE IVP ONE (06:26)
[2020-06-26 08:28] LABS: % Iron Saturation 6 % (20-55); Chol/HDL Ratio 2.7 (0-4.9); Cholesterol 156 mg/dL (< 200); HDL Cholesterol 57 mg/dL (40-59); Iron 33 mcg/dL (65-175); LDL Cholesterol,Calculated 85 mg/dL (< 100); Transferrin 383 mg/dL (203-362); Triglycerides 68 mg/dL (< 150)
[2020-06-26 08:39] LABS: Estimated Average Glucose 131 mg/dl; Hemoglobin A1C 6.2 %
[2020-06-26] MEDS ORDERED: NON-FORMULARY MEDICATION 1 EACH EACH (Buprenorphine Hcl/Naloxone Hcl [Suboxone 8 Mg-2 Mg S SL SCH (09:00)
[2020-06-26] MEDS: lisinopriL 10 MG TABLET PO SCH (09:51)
[2020-06-26] MEDS: Furosemide 40 MG TABLET PO SCH (09:53)
[2020-06-26] MEDS: Metoprolol XL (24 HR) Succ 50 MG TAB.ER.24H PO SCH ×2 (09:53→21:18)
[2020-06-26] MEDS: Buprenorphine Hcl/Naloxone Hcl [Suboxone 8 Mg-2 Mg] SL SCH (09:58)
[2020-06-26 10:01] LABS: Hematocrit 37.4 % (37.5-50.1); Mean Corpuscular HGB Conc 29.4 g/dL (31.6-35.5); Mean Corpuscular Hemoglobin 25.5 pg (28.0-33.3); Mean Corpuscular Volume 86.8 fL (83.0-100.0); Platelet Count 227 K/mcL (140-400); Red Blood Count 4.31 M/mcL (4.19-5.50); Red Cell Distribution Width 15.2 % (11.5-14.5); White Blood Count 4.2 K/mcL (4.3-11.1)
[2020-06-26 10:21] LABS: BUN/Creatinine Ratio 13 (6-26); Blood Urea Nitrogen 17 mg/dL (8-23); Calcium 9.9 mg/dL (8.6-10.3); Carbon Dioxide 28 mEq/L (23-29); Chloride 104 mEq/L (98-107); Glucose 110 mg/dL (70-105); Osmolality,Calculated 290 (280-300); Potassium 3.5 mEq/L (3.5-5.1); Sodium 139 mEq/L (136-145); eGFR For African Americans > 60 (> 60); eGFR For Non-African Americans 54 (> 60)
[2020-06-26 10:46] LABS: Folate 10.2 ng/mL (3.0-16.0)
[2020-06-26] MEDS: *HR* Buprenorphine HCl 8 MG TAB.SUBL SL SCH ×2 (11:17→21:17)
[2020-06-26] MEDS ORDERED: Metoprolol XL (24 HR) Succ 25 MG TAB.ER.24H PO ONE (13:49)
[2020-06-26] MEDS ORDERED: niCARdipine 20 MG/200 ML MLS IVC SCH (14:26)
[2020-06-26] MEDS: niCARdipine 20 MG CAPSULE PO SCH ×2 (16:09→21:19)
[2020-06-26] MEDS: Apixaban 5 MG TABLET PO SCH (21:18)
[2020-06-27 04:48] LABS: Hematocrit 34.8 % (37.5-50.1); Hemoglobin 10.2 g/dL (12.9-16.9); Mean Corpuscular HGB Conc 29.3 g/dL (31.6-35.5); Mean Corpuscular Hemoglobin 25.6 pg (28.0-33.3); Mean Corpuscular Volume 87.4 fL (83.0-100.0); Mean Platelet Volume 10.1 fL (9.4-12.4); Platelet Count 200 K/mcL (140-400); Red Blood Count 3.98 M/mcL (4.19-5.50); Red Cell Distribution Width 15.1 % (11.5-14.5); White Blood Count 3.7 K/mcL (4.3-11.1)
[2020-06-27 05:07] LABS: BUN/Creatinine Ratio 18 (6-26); Blood Urea Nitrogen 23 mg/dL (8-23); Calcium 9.9 mg/dL (8.6-10.3); Carbon Dioxide 30 mEq/L (23-29); Chloride 104 mEq/L (98-107); Glucose 93 mg/dL (70-105); Magnesium 1.6 mg/dL (1.6-2.6); Osmolality,Calculated 291 (280-300); Sodium 139 mEq/L (136-145); eGFR For African Americans > 60 (> 60); eGFR For Non-African Americans 54 (> 60)
[2020-06-27] MEDS: Apixaban 5 MG TABLET PO SCH (07:20)
[2020-06-27] MEDS: *HR* Buprenorphine HCl 8 MG TAB.SUBL SL SCH (07:20)
[2020-06-27] MEDS: niCARdipine 20 MG CAPSULE PO SCH (07:20)
[2020-06-27] MEDS: Metoprolol XL (24 HR) Succ 50 MG TAB.ER.24H PO SCH (07:20)
[2020-06-27] MEDS: Furosemide 40 MG TABLET PO SCH (07:20)
[2020-06-27] MEDS ORDERED: lisinopriL 20 MG TABLET PO SCH (09:00)
[2020-06-27 11:07] VITALS: BP 119/98
== END 2020-06-27 14:11 | disposition home or self-care (01) | DRG 280 ==
LOC: 3BNU 19:37 → EMEROOARM 19:37 → SUATTDRO 22:03 → 3BNU 22:42 → 2NNU 06-25 03:37
PROVIDERS: ADMIT Internal Medicine; ATTEND Internal Medicine

== ENCOUNTER 2022-06-23 16:07 | Inpatient (IN) ==
[2022-06-23 19:03] LABS: Basophils # 0.1 K/mcL (0.0-0.2); Basophils % 1.2 %; Eosinophils # 0.1 K/mcL (0.0-0.6); Eosinophils % 1.2 %; Hematocrit 24.2 % (37.5-50.1); Hemoglobin 7.4 g/dL (12.9-16.9); Immature Granulocytes % 0.2 % (0-4); Lymphocytes # 0.9 K/mcL (0.6-4.6); Lymphocytes % 14.8 %; Mean Corpuscular HGB Conc 30.6 g/dL (31.6-35.5); Monocytes # 0.7 K/mcL (0.0-1.3); Monocytes % 11.9 %; Neutrophils # 4.1 K/mcL (1.6-8.9); Platelet Count 333 K/mcL (140-400); Red Blood Count 2.47 M/mcL (4.19-5.50); Red Cell Distribution Width 15.8 % (11.5-14.5); Segmented Neutrophils % 70.7 %; White Blood Count 5.8 K/mcL (4.3-11.1)
[2022-06-23 19:25] LABS: Calcium 9.9 mg/dL (8.6-10.3); Potassium 4.2 mEq/L (3.5-5.1); Troponin I 0.03 ng/mL (< 0.04)
[2022-06-23] MEDS ORDERED: Iopamidol - 370 500 ML MLS IVP ONE (19:29)
[2022-06-23 19:36] LABS: Influenza A PCR Negative (Negative); Influenza B PCR Negative (Negative); Resp. Syncytial Virus PCR Negative (Negative)
[2022-06-23 19:37] LABS: SARS-CoV-2 by PCR (In House) Negative (Negative)
[2022-06-23 21:01] LABS: Bilirubin,Urine Negative (Negative); Blood,Urine Negative (Negative); Clarity,Urine Clear (Clear); Color,Urine Light-Yellow (Yellow); Glucose,Urine (UA) Normal (Normal); Ketones,Urine Negative (Negative); Leukocyte Esterase,Urine Negative (Negative); Nitrite,Urine Negative (Negative); PH,Urine 5.5 pH Units (5.0-8.0); Protein,Urine Trace mg/dL (Neg-Trace); Specific Gravity,Urine > 1.030 (1.010-1.025); Urobilinogen,Urine Normal (Normal)
[2022-06-23] MEDS ORDERED: Melatonin 3 MG TABLET PO PRN (22:10)
[2022-06-23] MEDS ORDERED: Ondansetron 4 MG/2 ML VIAL IVP PRN (22:10)
[2022-06-23] MEDS ORDERED: Acetaminophen 325 MG TABLET PO PRN (22:10)
[2022-06-23] MEDS ORDERED: Naloxone 0.4 MG/ML INJ IVP PRN (22:10)
[2022-06-23] MEDS ORDERED: methylPREDNISolone 125 MG/2 ML VIAL IVP ONE (23:01)
[2022-06-23] MEDS ORDERED: *HR* Dextrose 50 % in Water (Syg) 50 ML SYRINGE IVP PRN (23:49)
[2022-06-23] MEDS ORDERED: Dextrose Gel 15 GM/37.5 ML TUBE PO PRN ×2 (23:49)
[2022-06-23] MEDS ORDERED: D5% in Water 1,000 ML IVC PRN (23:49)
[2022-06-24 03:07] LABS: Basophils % 0.8 %; Eosinophils # 0.1 K/mcL (0.0-0.6); Eosinophils % 1.6 %; Hematocrit 20.1 % (37.5-50.1); Hemoglobin 6.3 g/dL (12.9-16.9); Immature Granulocytes % 0.3 % (0-4); Lymphocytes # 0.7 K/mcL (0.6-4.6); Lymphocytes % 19.3 %; Mean Corpuscular HGB Conc 31.3 g/dL (31.6-35.5); Mean Corpuscular Hemoglobin 30.1 pg (28.0-33.3); Mean Corpuscular Volume 96.2 fL (83.0-100.0); Mean Platelet Volume 10.4 fL (9.4-12.4); Monocytes # 0.4 K/mcL (0.0-1.3); Monocytes % 11.6 %; Neutrophils # 2.5 K/mcL (1.6-8.9); Platelet Count 253 K/mcL (140-400); Red Blood Count 2.09 M/mcL (4.19-5.50); Red Cell Distribution Width 15.5 % (11.5-14.5); Segmented Neutrophils % 66.4 %; White Blood Count 3.8 K/mcL (4.3-11.1)
[2022-06-24 03:15] LABS: INR 1.5; Prothrombin Time 17.2 Seconds (9.4-12.1)
[2022-06-24 03:17] LABS: Activated Partial Thrombo Time 30.8 Seconds (26.0-36.0)
[2022-06-24 03:27] LABS: Albumin 3.5 g/dL (3.5-5.7); Albumin/Globulin Ratio 1.7 (1.1-2.2); Bilirubin,Total 0.6 mg/dL (0.3-1.0); Calcium 9.3 mg/dL (8.6-10.3); Globulin 2.1 g/dL (2.4-3.5); Magnesium 2.1 mg/dL (1.6-2.6); Phosphorous 2.7 mg/dL (2.7-4.5); Total Protein 5.6 g/dL (6.4-8.9)
[2022-06-24] MEDS ORDERED: 0.9 % Sodium Chloride 250 ML ONE (03:37)
[2022-06-24 03:51] LABS: Folate 9.4 ng/mL (3.0-16.0)
[2022-06-24] MEDS ORDERED: MethylPREDNISolone 40 MG/ML VIAL IVP SCH (04:00)
[2022-06-24] MEDS: Ipratropium/Albuterol Neb 3 ML IH SCH ×6 (04:14→20:50)
[2022-06-24] MEDS ORDERED: Pantoprazole 40 MG VIAL IVP ONE (05:01)
[2022-06-24 05:22] LABS: Bilirubin,Direct 0.2 mg/dL (0.0-0.2); Bilirubin,Indirect 0.4 mg/dL (0.0-1.0); Bilirubin,Total 0.6 mg/dL (0.3-1.0)
[2022-06-24] MEDS: Budesonide/Formoterol 160/4.5 1 PUFF INH IH SCH ×2 (07:25→20:50)
[2022-06-24] MEDS ORDERED: Cyanocobalamin (B-12) 1,000 MCG TABLET PO SCH (09:00)
[2022-06-24 09:25] LABS: Hematocrit 22.9 % (37.5-50.1); Hemoglobin 7.2 g/dL (12.9-16.9)
[2022-06-24] MEDS: Iron Sucrose Complex 200 MG in 0.9 % Sodium Chloride 100 ML IVPB SCH (12:14)
[2022-06-24] MEDS ORDERED: SODIUM CHLORIDE/NAHCO3/KCL/PEG 4,000 ML SOLN.RECON PO ONE (17:00)
[2022-06-24] MEDS: Pantoprazole 40 MG VIAL IVP SCH (19:09)
[2022-06-25] MEDS: Ipratropium/Albuterol Neb 3 ML IH SCH ×7 (00:18→23:20)
[2022-06-25] MEDS: Pantoprazole 40 MG VIAL IVP SCH ×2 (06:00→18:24)
[2022-06-25 06:06] LABS: Basophils % 0.8 %; Eosinophils # 0.1 K/mcL (0.0-0.6); Eosinophils % 1.3 %; Hematocrit 22.1 % (37.5-50.1); Immature Granulocytes % 0.3 % (0-4); Lymphocytes # 0.9 K/mcL (0.6-4.6); Lymphocytes % 21.6 %; Mean Corpuscular HGB Conc 31.7 g/dL (31.6-35.5); Mean Corpuscular Hemoglobin 30.2 pg (28.0-33.3); Mean Corpuscular Volume 95.3 fL (83.0-100.0); Mean Platelet Volume 10.4 fL (9.4-12.4); Monocytes # 0.5 K/mcL (0.0-1.3); Monocytes % 13.7 %; Neutrophils # 2.5 K/mcL (1.6-8.9); Platelet Count 242 K/mcL (140-400); Red Blood Count 2.32 M/mcL (4.19-5.50); Segmented Neutrophils % 62.3 %; White Blood Count 3.9 K/mcL (4.3-11.1)
[2022-06-25 07:06] LABS: Albumin 3.3 g/dL (3.5-5.7); Albumin/Globulin Ratio 1.7 (1.1-2.2); Bilirubin,Total 0.9 mg/dL (0.3-1.0); Globulin 1.9 g/dL (2.4-3.5); Potassium 4.1 mEq/L (3.5-5.1); Thyroid Stimulating Hormone 6.504 mcIU/mL (0.340-5.600); Total Protein 5.2 g/dL (6.4-8.9)
[2022-06-25] MEDS ORDERED: Lidocaine -MPF 2% 5 ML VIAL ONE (07:41)
[2022-06-25] MEDS ORDERED: Simethicone 40 MG/0.6 ML MLS IR ONE (07:49)
[2022-06-25] MEDS: Metoprolol XL (24 HR) Succ 50 MG TAB.ER.24H PO SCH ×2 (10:30→19:55)
[2022-06-25] MEDS: Iron Sucrose Complex 200 MG in 0.9 % Sodium Chloride 100 ML IVPB SCH (10:30)
[2022-06-25] MEDS: lisinopriL 20 MG TABLET PO SCH (10:30)
[2022-06-25] MEDS: *HR* Buprenorphine HCl 8 MG TAB.SUBL SL SCH (10:30)
[2022-06-25] MEDS: Apixaban 5 MG TABLET PO SCH ×2 (10:32→19:55)
[2022-06-25 11:00] LABS: Estimated Average Glucose 103 mg/dl; Hemoglobin A1C 5.2 %
[2022-06-25] MEDS: Budesonide/Formoterol 160/4.5 1 PUFF INH IH SCH ×2 (11:03→20:20)
[2022-06-25 13:03] LABS: Hematocrit 24.1 % (37.5-50.1); Hemoglobin 7.6 g/dL (12.9-16.9)
[2022-06-25] MEDS ORDERED: Saline Nasal Spray 44 ML BOTTLE NS PRN (15:27)
[2022-06-26] MEDS: Ipratropium/Albuterol Neb 3 ML IH SCH ×6 (04:31→23:25)
[2022-06-26] MEDS: Pantoprazole 40 MG VIAL IVP SCH ×2 (05:18→19:00)
[2022-06-26 06:26] LABS: Basophils % 0.6 %; Eosinophils % 0.8 %; Hematocrit 26.1 % (37.5-50.1); Immature Granulocytes % 0.2 % (0-4); Lymphocytes # 0.4 K/mcL (0.6-4.6); Lymphocytes % 8.2 %; Mean Corpuscular HGB Conc 30.7 g/dL (31.6-35.5); Mean Corpuscular Hemoglobin 29.5 pg (28.0-33.3); Mean Corpuscular Volume 96.3 fL (83.0-100.0); Mean Platelet Volume 10.4 fL (9.4-12.4); Monocytes # 0.5 K/mcL (0.0-1.3); Monocytes % 9.2 %; Neutrophils # 4.1 K/mcL (1.6-8.9); Platelet Count 286 K/mcL (140-400); Red Blood Count 2.71 M/mcL (4.19-5.50)
[2022-06-26 06:47] LABS: Albumin/Globulin Ratio 1.7 (1.1-2.2); Bilirubin,Total 0.8 mg/dL (0.3-1.0); Calcium 9.9 mg/dL (8.6-10.3); Globulin 2.4 g/dL (2.4-3.5); Potassium 4.7 mEq/L (3.5-5.1); Total Protein 6.4 g/dL (6.4-8.9)
[2022-06-26] MEDS: Budesonide/Formoterol 160/4.5 1 PUFF INH IH SCH ×2 (07:31→19:54)
[2022-06-26] MEDS: Apixaban 5 MG TABLET PO SCH ×2 (09:12→19:27)
[2022-06-26] MEDS: Metoprolol XL (24 HR) Succ 50 MG TAB.ER.24H PO SCH ×2 (09:12→19:27)
[2022-06-26] MEDS: lisinopriL 20 MG TABLET PO SCH (09:12)
[2022-06-26] MEDS: *HR* Buprenorphine HCl 8 MG TAB.SUBL SL SCH (09:13)
[2022-06-26] MEDS: Iron Sucrose Complex 200 MG in 0.9 % Sodium Chloride 100 ML IVPB SCH (10:17)
[2022-06-27] MEDS: Ipratropium/Albuterol Neb 3 ML IH SCH ×6 (03:50→23:04)
[2022-06-27] MEDS: Pantoprazole 40 MG VIAL IVP SCH ×2 (05:37→17:27)
[2022-06-27 05:50] LABS: Basophils % 0.7 %; Eosinophils % 0.5 %; Hematocrit 23.4 % (37.5-50.1); Hemoglobin 7.2 g/dL (12.9-16.9); Immature Granulocytes % 0.3 % (0-4); Lymphocytes # 0.5 K/mcL (0.6-4.6); Lymphocytes % 8.9 %; Mean Corpuscular HGB Conc 30.8 g/dL (31.6-35.5); Mean Corpuscular Hemoglobin 29.4 pg (28.0-33.3); Mean Corpuscular Volume 95.5 fL (83.0-100.0); Mean Platelet Volume 10.5 fL (9.4-12.4); Monocytes # 0.8 K/mcL (0.0-1.3); Monocytes % 13.4 %; Neutrophils # 4.5 K/mcL (1.6-8.9); Nucleated Red Blood Cells 0.3 /100 WBC (0); Platelet Count 272 K/mcL (140-400); Red Blood Count 2.45 M/mcL (4.19-5.50); Red Cell Distribution Width 16.1 % (11.5-14.5); Segmented Neutrophils % 76.2 %
[2022-06-27 06:10] LABS: Albumin 3.4 g/dL (3.5-5.7); Albumin/Globulin Ratio 1.7 (1.1-2.2); Bilirubin,Total 0.9 mg/dL (0.3-1.0); Calcium 9.8 mg/dL (8.6-10.3); Potassium 4.6 mEq/L (3.5-5.1); Total Protein 5.4 g/dL (6.4-8.9)
[2022-06-27] MEDS: Budesonide/Formoterol 160/4.5 1 PUFF INH IH SCH ×2 (07:27→20:01)
[2022-06-27] MEDS: Metoprolol XL (24 HR) Succ 50 MG TAB.ER.24H PO SCH ×2 (09:39→19:44)
[2022-06-27] MEDS: *HR* Buprenorphine HCl 8 MG TAB.SUBL SL SCH (09:39)
[2022-06-27] MEDS: lisinopriL 20 MG TABLET PO SCH (09:39)
[2022-06-27] MEDS: Apixaban 5 MG TABLET PO SCH ×2 (09:39→19:44)
[2022-06-28] MEDS: Ipratropium/Albuterol Neb 3 ML IH SCH ×6 (04:08→23:10)
[2022-06-28] MEDS: Pantoprazole 40 MG VIAL IVP SCH ×2 (05:28→17:41)
[2022-06-28] MEDS: Budesonide/Formoterol 160/4.5 1 PUFF INH IH SCH ×2 (07:26→19:59)
[2022-06-28] MEDS ORDERED: SODIUM CHLORIDE/NAHCO3/KCL/PEG 4,000 ML SOLN.RECON PO SCH (07:30)
[2022-06-28] MEDS: *HR* Buprenorphine HCl 8 MG TAB.SUBL SL SCH (10:56)
[2022-06-28] MEDS: Metoprolol XL (24 HR) Succ 50 MG TAB.ER.24H PO SCH ×2 (10:56→21:08)
[2022-06-28] MEDS: lisinopriL 20 MG TABLET PO SCH (10:56)
[2022-06-28 11:31] LABS: Basophils % 0.6 %; Eosinophils # 0.1 K/mcL (0.0-0.6); Hematocrit 25.2 % (37.5-50.1); Hemoglobin 7.9 g/dL (12.9-16.9); Immature Granulocytes % 0.2 % (0-4); Lymphocytes # 0.7 K/mcL (0.6-4.6); Mean Corpuscular HGB Conc 31.3 g/dL (31.6-35.5); Mean Corpuscular Hemoglobin 30.2 pg (28.0-33.3); Mean Corpuscular Volume 96.2 fL (83.0-100.0); Mean Platelet Volume 10.3 fL (9.4-12.4); Monocytes # 0.9 K/mcL (0.0-1.3); Monocytes % 16.3 %; Neutrophils # 3.5 K/mcL (1.6-8.9); Platelet Count 268 K/mcL (140-400); Red Blood Count 2.62 M/mcL (4.19-5.50); Red Cell Distribution Width 16.3 % (11.5-14.5); Segmented Neutrophils % 67.9 %; White Blood Count 5.2 K/mcL (4.3-11.1)
[2022-06-28] MEDS: Apixaban 5 MG TABLET PO SCH ×3 (12:27→21:08)
[2022-06-28] MEDS ORDERED: Lidocaine -MPF 2% 5 ML VIAL ONE (13:48)
[2022-06-29 02:50] LABS: Basophils % 0.8 %; Eosinophils # 0.1 K/mcL (0.0-0.6); Eosinophils % 1.6 %; Hematocrit 22.9 % (37.5-50.1); Hemoglobin 7.1 g/dL (12.9-16.9); Immature Granulocytes % 0.2 % (0-4); Lymphocytes # 0.7 K/mcL (0.6-4.6); Mean Corpuscular Volume 96.6 fL (83.0-100.0); Mean Platelet Volume 10.3 fL (9.4-12.4); Monocytes # 0.8 K/mcL (0.0-1.3); Monocytes % 16.3 %; Neutrophils # 3.5 K/mcL (1.6-8.9); Platelet Count 259 K/mcL (140-400); Red Blood Count 2.37 M/mcL (4.19-5.50); Red Cell Distribution Width 16.7 % (11.5-14.5); Segmented Neutrophils % 68.1 %; White Blood Count 5.2 K/mcL (4.3-11.1)
[2022-06-29] MEDS: Ipratropium/Albuterol Neb 3 ML IH SCH ×6 (04:50→23:59)
[2022-06-29] MEDS: Pantoprazole 40 MG VIAL IVP SCH ×2 (05:02→17:44)
[2022-06-29] MEDS: Budesonide/Formoterol 160/4.5 1 PUFF INH IH SCH ×2 (07:39→20:44)
[2022-06-29] MEDS: lisinopriL 20 MG TABLET PO SCH (07:57)
[2022-06-29] MEDS: Metoprolol XL (24 HR) Succ 50 MG TAB.ER.24H PO SCH ×2 (07:58→22:11)
[2022-06-29] MEDS: Apixaban 5 MG TABLET PO SCH ×2 (07:58→22:11)
[2022-06-29] MEDS: *HR* Buprenorphine HCl 8 MG TAB.SUBL SL SCH (07:58)
[2022-06-30] MEDS ORDERED: 0.9 % Sodium Chloride 250 ML ONE (01:34)
[2022-06-30] MEDS: Ipratropium/Albuterol Neb 3 ML IH SCH ×3 (04:13→11:13)
[2022-06-30] MEDS: Pantoprazole 40 MG VIAL IVP SCH (04:59)
[2022-06-30 06:21] VITALS: TEMP 97.9
[2022-06-30] MEDS: Budesonide/Formoterol 160/4.5 1 PUFF INH IH SCH (07:30)
[2022-06-30] MEDS: *HR* Buprenorphine HCl 8 MG TAB.SUBL SL SCH (09:28)
[2022-06-30] MEDS: lisinopriL 20 MG TABLET PO SCH (09:28)
[2022-06-30] MEDS: Apixaban 5 MG TABLET PO SCH (09:28)
[2022-06-30] MEDS: Metoprolol XL (24 HR) Succ 50 MG TAB.ER.24H PO SCH (09:28)
[2022-06-30 09:38] LABS: Basophils % 0.5 %; Eosinophils # 0.1 K/mcL (0.0-0.6); Eosinophils % 1.3 %; Hematocrit 28.3 % (37.5-50.1); Immature Granulocytes % 0.2 % (0-4); Lymphocytes # 0.7 K/mcL (0.6-4.6); Mean Corpuscular HGB Conc 30.7 g/dL (31.6-35.5); Mean Corpuscular Hemoglobin 29.7 pg (28.0-33.3); Mean Corpuscular Volume 96.6 fL (83.0-100.0); Mean Platelet Volume 10.6 fL (9.4-12.4); Monocytes # 0.8 K/mcL (0.0-1.3); Monocytes % 13.7 %; Neutrophils # 3.9 K/mcL (1.6-8.9); Platelet Count 205 K/mcL (140-400); Red Blood Count 2.93 M/mcL (4.19-5.50); Red Cell Distribution Width 16.1 % (11.5-14.5); Segmented Neutrophils % 71.3 %; White Blood Count 5.5 K/mcL (4.3-11.1)
[2022-06-30 09:46] LABS: Hemoglobin 8.7 g/dL (12.9-16.9)
[2022-06-30 09:52] LABS: Calcium 9.3 mg/dL (8.6-10.3); Potassium 3.7 mEq/L (3.5-5.1)
[2022-06-30] MEDS ORDERED: polyethylene glycoL 3350 17 GM POWD.PACK PO PRN (10:04)
[2022-06-30 12:09] VITALS: BP 122/89; PULSE 80
[2022-06-30 13:33] LABS: Influenza A PCR Negative (Negative); Influenza B PCR Negative (Negative); Resp. Syncytial Virus PCR Negative (Negative)
[2022-06-30 13:46] LABS: SARS-CoV-2 by PCR (In House) Negative (Negative)
[2022-06-30 14:18] VITALS: O2SAT 97
== END 2022-06-30 14:35 | DRG 811 ==
LOC: EMEROOARM 16:07 → 2ANU 16:07 → SUATTDRO 22:14 → 2ANU 23:41
PROVIDERS: ADMIT Internal Medicine; ATTEND Student in an Organized Health Care Education/Training Program